=== PATIENT | male | born 2000 | race Caucasian/White ===

== ENCOUNTER 2024-11-03 01:35 | Emergency (ER) | payer OTHER ==
[~2024-11-03] VITALS: Ht 182.9 cm; Wt 108.5 kg
[2024-11-03 03:03] LABS: LIPASE 24 U/L (12-53)
[2024-11-03 03:04] LABS: ALBUMIN 4.4 G/DL (3.2-5.2); ALKALINE PHOSPHATASE 71 U/L (40-129); ALT/SGPT 103 U/L (7.0-40); AST/SGOT 50 U/L (<34); BILIRUBIN,DIRECT 0.2 MG/DL (<0.4); BILIRUBIN,TOTAL 0.9 MG/DL (0.3-1.2); BLOOD UREA NITROGEN 20 MG/DL (9-23); CALCIUM LEVEL 9.9 MG/DL (8.5-10.1); CARBON DIOXIDE LEVEL 18 MMOL/L (20-31); CHLORIDE LEVEL 106 MMOL/L (98-107); CK-MB VALUE MASS < 1.0 NG/ML (<3.6); CREATININE FOR GFR 0.88 MG/DL (0.70-1.30); GLOMERULAR FILTRATION RATE > 60.0 (>60); GLUCOSE, FASTING 114 MG/DL (60-100); POTASSIUM SERUM 4.4 MMOL/L (3.5-5.1); SODIUM LEVEL 139 MMOL/L (136-145); TOTAL PROTEIN 7.9 G/DL (5.7-8.2)
[2024-11-03 03:05] LABS: CPK CREATINE PHOSPHOKINASE 128 U/L (46-171); MB/CK RELATIVE INDEX 0.78 (< OR =4)
[2024-11-03 03:33] LABS: BASO % 0.3 % (0.0-1.0); EOS # 0.1 10^3/uL (0.0-0.5); EOS % 0.9 % (0.0-3.0); HEMATOCRIT 48.9 % (42.0-52.0); HEMOGLOBIN 17.6 g/dl (13.5-17.5); LYMPH # 0.4 10^3/uL (1.5-5.0); LYMPH % 3.4 % (24.0-44.0); MEAN CORPUSCULAR HEMOGLOBIN 30.5 pg (27.0-33.0); MEAN CORPUSCULAR VOLUME 84.7 fl (80.0-96.0); MONO # 0.7 10^3/uL (0.0-0.8); MONO % 5.5 % (2.0-8.0); NEUTROPHILS # 10.6 10^3/uL (1.5-8.5); NEUTROPHILS % 89.5 % (36.0-66.0); PLATELET COUNT, AUTOMATED 200 10^3/uL (150-450); RED BLOOD COUNT 5.77 10^6/uL (4.30-6.10); WHITE BLOOD COUNT 11.9 10^3/uL (4.0-10.0)
[2024-11-03] MEDS: ONDANSETRON 4MG 2ML VIAL IV ONE (03:48)
[2024-11-03 04:14] LABS: CK-MB VALUE MASS < 1.0 NG/ML (<3.6)
[2024-11-03 04:17] LABS: CPK CREATINE PHOSPHOKINASE 121 U/L (46-171); MB/CK RELATIVE INDEX 0.82 (< OR =4)
[2024-11-03] MEDS: LOPERAMIDE 2 MG CAPLET PO ONE (05:30)
[2024-11-03] MEDS: NS (Normal Saline) 0.9% 1,000 ML IV ONE (05:30)
[2024-11-03] MEDS ORDERED: LOPE2CAP PO (05:32)
[2024-11-03] MEDS ORDERED: ONDA-284 PO (05:32)
[2024-11-03 06:15] VITALS: BP 132/82; TEMP 99.2; O2SAT 96
== END 2024-11-03 06:28 | disposition home or self-care (01) ==
LOC: M ED 01:35
DX: R11.2 Nausea with vomiting, unspecified (principal); R19.7 Diarrhea, unspecified; R00.0 Tachycardia, unspecified; Z88.8 Allergy status to other drugs, medicaments and biological substances; Z79.899 Other long term (current) drug therapy
CPT/HCPCS: 80048; 80076; 82550; 82553; 83690; 84484; 85025; 87486; 87581; 87633; 87798; 93005; 93041; 94760; 96361; 96374; 99285; J2405